=== PATIENT | male | born 1930 | race Caucasian/White ===

== ENCOUNTER 2016-10-01 10:28 | Inpatient (IN) | payer OTHER ==
[~2016-10-01] VITALS: Ht 157.5 cm; Wt 71.7 kg
[~2016-10-01 10:28] MED LIST: DOCU100C58 PO; LEVO50TA8 PO; LOSA50TA21 PO; SIMV40TA5 PO
--- NOTE | 2016-10-01 11:01 | NUR ---
AAOX3, AMBULATES TO ER BED 07, LIMPING NOTED C/O LEFT 4TH ADN 5TH TOE PAIN AND SWELLING, DISCOLORATION NOTED. SKIN IS WARM AND DRY. DENIES ANY TRAUMA. RESP EVEN AND UNLABORED. NAD NOTED. AWAITING MD FOR EVAL.
[2016-10-01] MEDS ORDERED: PIPERACILLIN /TAZOBACTAM 3.375 G in IV D5W 50 ML IV ONE (11:30)
[2016-10-01] MEDS ORDERED: ONDANSETRON HCL/PF 4 MG/2 ML VIAL IV ONE (11:30)
[2016-10-01] MEDS ORDERED: MORPHINE SULFATE INJ 2 MG/ML DISP.SYRIN IV ONE (11:30)
[2016-10-01] MEDS ORDERED: ONDANSETRON HCL/PF 4 MG/2 ML VIAL ONE (11:37)
[2016-10-01] MEDS ORDERED: MORPHINE SULFATE INJ 4 MG/ML DISP.SYRIN ONE (11:37)
[2016-10-01 11:42] LABS: BASOPHILS % (AUTO) 0.3 % (0.0-2.0); EOSINOPHILS % (AUTO) 0.3 % (0.0-6.0); HEMATOCRIT 43 % (39-51); HEMOGLOBIN 13.8 g/dL (13.5-17.5); LYMPHOCYTES # (AUTO) 1.8 /CMM (0.8-4.8); LYMPHOCYTES % (AUTO) 22.1 % (20.0-44.0); MEAN CORPUSCULAR HEMOGLOBIN 28 PG (26.0-33.0); MEAN CORPUSCULAR HGB CONC 32 g/dl (31.0-36.0); MEAN CORPUSCULAR VOLUME 88 fL (80-96); MONOCYTES # (AUTO) 0.6 /CMM (0.1-1.30); MONOCYTES % (AUTO) 6.9 % (2.0-12.0); NEUTROPHILS # (AUTO) 5.8 /CMM (1.8-8.9); NEUTROPHILS % (AUTO) 70.4 % (43.0-81.0); PLATELET COUNT (AUTO) 294 /CMM (150-450); RDW COEFFICIENT OF VARIATION 13.5 (11.5-15.0); RED BLOOD CELL COUNT(AUTO) 4.88 MIL/uL (4.5-6.0); WHITE BLOOD COUNT (AUTO) 8.2 K/uL (4.3-11.0)
[2016-10-01 11:52] LABS: CREATININE 0.8 mg/dL (0.6-1.3); POTASSIUM 4.1 mmol/L (3.5-5.1)
[2016-10-01 11:58] LABS: ALBUMIN 3.4 g/dL (3.4-5.0); BILIRUBIN,TOTAL 0.5 mg/dL (0.2-1.0); TOTAL PROTEIN, SERUM 7.7 g/dL (6.4-8.2)
--- NOTE | 2016-10-01 13:28 | NUR ---
CALLED FOR PANEL CONCRETE BUCKET UNLOADER DR SHARMA
--- NOTE | 2016-10-01 13:54 | NUR ---
CALLED NURSING INCLUSION PARAEDUCATOR FOR M/S BED
[2016-10-01] MEDS ORDERED: DIPH25CA83 PO (14:00)
[2016-10-01] MEDS ORDERED: NIFE30TA89 PO (14:00)
--- NOTE | 2016-10-01 14:08 | NUR ---
DAUGHTER AT BEDSIDE
--- NOTE | 2016-10-01 14:59 | NUR ---
REPORT GIVEN TO SANJU MIKE FOR CRESENCIO
--- NOTE | 2016-10-01 15:00 | NUR ---
MS RN OPENING NOTES RECEIVED PT FROM ER NURSE IN STABLE CONDITION. NO SOB OR SIGNS OF DISTRESS AT THIS TIME. NO PAIN EXPRESSED BY PATIENT. IV SITE INTACT AND PATENT. BED IN LOW LOCKED POSITION, SIDE RAILS UP X2, CALL LIGHT WITHIN PT. REACH. WILL WAIT FOR ORDERS AND CONTINUE ADMISSION PROCESS.
[2016-10-01 15:30] VITALS: BP 126/73
[2016-10-01] MEDS ORDERED: HYDROCODONE/APAP 5/325MG 1 EACH TABLET PO PRN (15:30)
[2016-10-01] MEDS ORDERED: MAG HYDROX/AL HYDROX/SIMETH 30 ML UDC PO PRN ×2 (15:30→15:45)
[2016-10-01] MEDS ORDERED: diphenhydrAMINE HCL 25 MG CAPSULE PO SCH (15:30)
[2016-10-01] MEDS ORDERED: ACETAMINOPHEN 325 MG TABLET PO PRN ×2 (15:30→15:45)
[2016-10-01] MEDS ORDERED: ONDANSETRON HCL/PF 4 MG/2 ML VIAL IVP PRN ×2 (15:30→15:45)
[2016-10-01] MEDS ORDERED: MAGNESIUM HYDROXIDE 30 ML UDC PO PRN ×2 (15:30→15:45)
[2016-10-01] MEDS ORDERED: ZOLPIDEM TARTRATE 5 MG TABLET PO PRN ×2 (15:30→15:45)
[2016-10-01] MEDS ORDERED: Z GUARD REMEDY 2 OZ OINT TP PRN ×2 (15:30→15:45)
[2016-10-01] MEDS ORDERED: CLINDAMYCIN IV RTU IN D5W 900 MG/50 ML PIGGYBACK IV SCH (17:00)
[2016-10-01] MEDS ORDERED: IV SET PRIMARY PUMP SET 1 EA INFUS.SET MC ONE (18:12)
[2016-10-01] MEDS ORDERED: IV NS 0.9% 250 ML IV ONE (18:12)
[2016-10-01] MEDS ORDERED: SECONDARY IV SET 1 EA INFUS.SET MC ONE (18:12)
[2016-10-01] MEDS: CLINDAMYCIN 900 MG in IV D5W 50 ML IV SCH (18:19)
[2016-10-01 19:00] VITALS: BP 96/53
--- NOTE | 2016-10-01 19:15 | NUR ---
MS RN CLOSING NOTES PT. IN STABLE CONDITION AWAKE IN BED. NO SOB OR SIGNS OF DISTRESS. NO COMPLAINTS OF PAIN AT THIS TIME. BED IN LOW LOCKED POSITION, SIDE RAILS UP X2, CALL LIGHT WITHIN PT REACH. ALL SAFETY MEASURE INITIATED AND ALL ORDERS CARRIED OUT THROUGHOUT SHIFT. WILL ENDORSE TO HOSIERY KNITTER NURSE FOR CRESENCIO.
--- NOTE | 2016-10-01 19:30 | NUR ---
MS NURSE OPENING NOTES RECEIVED REPORT FROM NIGHT NURSE. PATIENT WAS RESTING IN BED IN THE LOWEST POSITION, SIDE RAILS UP X2, CALL LIGHT WITHIN REACH, AND NO SIGNS OF SOB OR DISTRESS. WILL CONTINUE TO ASSESS, MONITOR, AND IMPLEMENT PLAN OF CARE.
--- NOTE | 2016-10-01 19:30 | NUR ---
RN NOTES RECEIVED PT. AWAKE ON BED, A/OX4, COMORAN SPEAKING DENIES ANY PAIN, NO SOB, CALL LIGHT WITHIN REACH, SIDERAILS UPX2 CONTINUE TO MONITOR
[2016-10-01] MEDS: SIMVASTATIN 40 MG TABLET PO SCH (21:46)
[2016-10-01] MEDS ORDERED: SIMVASTATIN 40 MG TABLET PO SCH (22:00)
[2016-10-01] MEDS ORDERED: diphenhydrAMINE HCL 25 MG CAPSULE PO PRN (22:00)
[2016-10-02 00:49] VITALS: BP 96/53
[2016-10-02] MEDS: CLINDAMYCIN 900 MG in IV D5W 50 ML IV SCH ×3 (01:04→16:06)
--- NOTE | 2016-10-02 06:47 | NUR ---
MS NURSE'S CLOSING NOTES PATIENT IS IN STABLE CONDITION. PT IS SLEEPING IN BED. NO SOB OR SIGNS OF DISTRESS. BED IS IN LOW LOCKED POSITION. SIDE RAILS UP X2, CALL LIGHT WITHIN REACH.
--- NOTE | 2016-10-02 07:20 | NUR ---
ms rn initial notes Received patient in bed, awake, head of bed elevated, no SOB or distress noted. on 02 @ 2lpm via NC and tolerated well. Alert and Oriented x 4, bhutanese speaking only. Ambulatory. heplock on the left AC #20 intact and patent. Kept patient clean and comfortable in bed, call light with in patient reach, will continue to monitor accordingly.
[2016-10-02] MEDS ORDERED: LEVOTHYROXINE SODIUM 50 MCG TABLET PO SCH (07:30)
[2016-10-02] MEDS: LEVOTHYROXINE SODIUM 50 MCG TABLET PO SCH (07:38)
[2016-10-02 08:00] VITALS: BP 154/82
[2016-10-02 08:15] LABS: BASOPHILS % (AUTO) 0.1 % (0.0-2.0); EOSINOPHILS # (AUTO) 0.1 /CMM (0.0-0.7); EOSINOPHILS % (AUTO) 2.1 % (0.0-6.0); HEMATOCRIT 41 % (39-51); HEMOGLOBIN 13.3 g/dL (13.5-17.5); LYMPHOCYTES # (AUTO) 2.3 /CMM (0.8-4.8); LYMPHOCYTES % (AUTO) 37.1 % (20.0-44.0); MEAN CORPUSCULAR HEMOGLOBIN 29 PG (26.0-33.0); MEAN CORPUSCULAR HGB CONC 33 g/dl (31.0-36.0); MEAN CORPUSCULAR VOLUME 89 fL (80-96); MONOCYTES # (AUTO) 0.8 /CMM (0.1-1.30); MONOCYTES % (AUTO) 12.7 % (2.0-12.0); PLATELET COUNT (AUTO) 259 /CMM (150-450); RDW COEFFICIENT OF VARIATION 14.5 (11.5-15.0); RED BLOOD CELL COUNT(AUTO) 4.57 MIL/uL (4.5-6.0); WHITE BLOOD COUNT (AUTO) 6.2 K/uL (4.3-11.0)
[2016-10-02 08:20] VITALS: BP 152/82
[2016-10-02] MEDS: NIFEdipine XL (30MG) 30 MG TAB PO SCH (08:47)
[2016-10-02] MEDS ORDERED: NIFEdipine XL (30MG) 30 MG TAB PO SCH (09:00)
[2016-10-02] MEDS: HYDROCODONE/APAP 5/325MG 1 EACH TABLET PO PRN ×2 (11:47→18:42)
--- NOTE | 2016-10-02 11:52 | NUR ---
WOUND CARE CONSULT: PATIENT SEEN AND SKIN ASSESSMENT DONE. PATIENT ALERT, ORIENTED, AMBULATORY, INDEPENDENT WITH BED MOBILITY, CONTINENT, VALERY 21. SEE TODAY'S SKIN ASSESSMENT IN PCS ALONG WITH RECOMMENDATIONS DISCUSSED WITH NURSING STAFF. IN AGREEMENT WITH PLAN OF CARE. Addendum: 10/02/16 at 1153 by JUSTICE BORJAS WNDNU Amended: Links added.
[2016-10-02] MEDS: NEOMY SULF/BACITRAC ZN/POLY 15 GM TUBE TP SCH (14:41)
--- NOTE | 2016-10-02 15:52 | NUR ---
ms rn notes Paged Dr. Anderson and spoke with him and informed regarding patient VTE score of 3 and ordered Lovenox 40mg SQ QD. All orders carried out and noted. Will continue to monitor accordingly.
[2016-10-02 16:00] VITALS: BP 147/79
[2016-10-02] MEDS: ENOXAPARIN SODIUM 40 MG/0.4 ML DISP.SYRIN SQ SCH (16:06)
[2016-10-02 16:09] LABS: FREE PSA < 0.06 ng/mL (0.00-45)
[2016-10-02 16:11] LABS: PROSTATE SPECIFIC ANTIGEN SCR < 0.13 ng/mL (0.00-4.00)
[2016-10-02 16:46] VITALS: BP 147/79
[2016-10-02] MEDS ORDERED: BENZONATATE 100 MG CAPSULE PO PRN (18:00)
--- NOTE | 2016-10-02 19:33 | NUR ---
ms rn closing notes All needs provided, attended, and anticipated. Kept patient clean and comfortable in bed, call light with in patient reach, will continue to monitor accordingly. Endorsed to next shift RN to continue care.
[2016-10-02 20:00] VITALS: BP 125/72
[2016-10-02] MEDS: SIMVASTATIN 40 MG TABLET PO SCH (21:07)
[2016-10-03] MEDS: CLINDAMYCIN 900 MG in IV D5W 50 ML IV SCH ×3 (00:21→16:25)
[2016-10-03] MEDS: HYDROCODONE/APAP 5/325MG 1 EACH TABLET PO PRN ×2 (00:21→08:47)
[2016-10-03] MEDS: LEVOTHYROXINE SODIUM 50 MCG TABLET PO SCH (06:20)
--- NOTE | 2016-10-03 06:46 | NUR ---
wound dressing provided last night, refused pain meds ,gives him upset stomach,continue with antibiotics,didn't sleep well last night due to agitated roommate.
--- NOTE | 2016-10-03 07:20 | NUR ---
ms rn initial notes Received patient in bed, awake, head of bed elevated, no SOB or distress noted. on room air and tolerated well. Ambulatory. Alert and oriented x 4, Barbadian speaking. IV intact and patent heplock only. Kept patient clean and comfortable in bed, call light with in patient reach, will continue to monitor accordingly.
[2016-10-03 08:00] VITALS: BP_SYST 136; BP_SYST 156; BP_DIAS 82
[2016-10-03] MEDS: NEOMY SULF/BACITRAC ZN/POLY 15 GM TUBE TP SCH (08:43)
[2016-10-03] MEDS: NIFEdipine XL (30MG) 30 MG TAB PO SCH (08:43)
[2016-10-03 16:00] VITALS: BP_SYST 154; BP_DIAS 82; BP_DIAS 89
[2016-10-03] MEDS: ENOXAPARIN SODIUM 40 MG/0.4 ML DISP.SYRIN SQ SCH (16:26)
--- NOTE | 2016-10-03 16:38 | NUR ---
ms rn notes Dr. Anderson on site and informed regarding patient wound culture result and sensitivity and ordered to discontinue previous IV ATB and change it to Levaquin 750mg IV Q24hrs. All orders carried out and noted. Will continue to monitor accordingly.
[2016-10-03] MEDS ORDERED: LEVOFLOXACIN 750 MG /D5W 150ML 750 MG in PREMIX 1 EA IV SCH (17:00)
--- NOTE | 2016-10-03 19:25 | NUR ---
MS RN NOTES RECEIVED ON BED AWAKE,ALERT X4,WATCHING TV PROGRAM.DENIES PAIN AT THE MOMENT.SALINE LOCK LAC INTACT AND PATENT LEFT FOOT DRESSING INTACT AND DRY.CALL LIGHT IN REACH,NEEDS ANTICIPATED.
--- NOTE | 2016-10-03 19:30 | NUR ---
MS RN NOTES ON BED SLEEPING WITH HOB ELEVATED.BREATHING REGULAR.O2 IN USED TO KEEP O2 SAT ABOVE 90%.LEFT DRESSING INTACT AND DRY.FALL PRECAUTION OBSERVED.WILL CONTINUE TO MONITOR STATUS.
[2016-10-03 20:00] VITALS: BP 124/71
[2016-10-03 20:39] VITALS: BP 124/71
[2016-10-03] MEDS: SIMVASTATIN 40 MG TABLET PO SCH (21:06)
--- NOTE | 2016-10-03 21:30 | NUR ---
MS RN NOTES DUE PO MEDS GIVEN.DRESSING DONE ON HIS LEFT FOOT.
--- NOTE | 2016-10-04 06:37 | NUR ---
MS RN NOTES AWAKE,ASSISTED WITH MORNING CARE BY AJ ASTORGA.ALL NEEDS ATTENDED.WILL ENDORSE TO DAY NURSE FOR CRESENCIO.
[2016-10-04 07:32] LABS: BASOPHILS % (AUTO) 0.2 % (0.0-2.0); EOSINOPHILS # (AUTO) 0.2 /CMM (0.0-0.7); EOSINOPHILS % (AUTO) 3.2 % (0.0-6.0); HEMATOCRIT 43 % (39-51); HEMOGLOBIN 14.4 g/dL (13.5-17.5); LYMPHOCYTES # (AUTO) 3.1 /CMM (0.8-4.8); LYMPHOCYTES % (AUTO) 48.3 % (20.0-44.0); MEAN CORPUSCULAR HEMOGLOBIN 29 PG (26.0-33.0); MEAN CORPUSCULAR HGB CONC 33 g/dl (31.0-36.0); MEAN CORPUSCULAR VOLUME 88 fL (80-96); MONOCYTES # (AUTO) 0.5 /CMM (0.1-1.30); MONOCYTES % (AUTO) 8.6 % (2.0-12.0); NEUTROPHILS # (AUTO) 2.5 /CMM (1.8-8.9); NEUTROPHILS % (AUTO) 39.7 % (43.0-81.0); PLATELET COUNT (AUTO) 345 /CMM (150-450); RDW COEFFICIENT OF VARIATION 14.3 (11.5-15.0); RED BLOOD CELL COUNT(AUTO) 4.93 MIL/uL (4.5-6.0); WHITE BLOOD COUNT (AUTO) 6.4 K/uL (4.3-11.0)
--- NOTE | 2016-10-04 07:35 | NUR ---
AM RN NOTE Received patient awake, A/O X3 verbally responsive. No SOB noted resp even and non-labored. IV site intact and patent. Bed in low locked position. Will continue to monitor.
[2016-10-04 07:54] LABS: CALCIUM, SERUM 9.2 mg/dL (8.5-10.1)
[2016-10-04 08:00] VITALS: BP 128/74
[2016-10-04] MEDS: LEVOFLOXACIN 750 MG /D5W 150ML 750 MG in PREMIX 1 EA IV SCH (08:53)
[2016-10-04] MEDS: NIFEdipine XL (30MG) 30 MG TAB PO SCH (08:53)
[2016-10-04] MEDS: LEVOTHYROXINE SODIUM 50 MCG TABLET PO SCH (08:53)
[2016-10-04] MEDS: NEOMY SULF/BACITRAC ZN/POLY 15 GM TUBE TP SCH (08:54)
[2016-10-04] MEDS ORDERED: LEVOFLOXACIN 750 MG /D5W 150ML 750 MG in PREMIX 1 EA IV SCH (09:00)
--- NOTE | 2016-10-04 11:10 | NUR ---
AM RN NOTE Patient awake, IV site noted with leakage, re-inserted new site on right hand #22 x1 attempt.
[2016-10-04] MEDS: ENOXAPARIN SODIUM 40 MG/0.4 ML DISP.SYRIN SQ SCH (15:50)
[2016-10-04 16:00] VITALS: BP 133/76
--- NOTE | 2016-10-04 18:35 | NUR ---
AM RN NOTE Patient lying in his bed, no acute distress noted. IV site intact and patent. Will continue to monitor. Will endorse to next shift for CRESENCIO.
[2016-10-04 20:00] VITALS: BP 158/86
--- NOTE | 2016-10-04 20:00 | NUR ---
FINANCIAL PLANNING ASSISTANT INITIAL NOTES SEEN PT IN BED AWAKE AND ALERT WATCHING TV , DENIES ANY PAIN OR ANY DISCOMFORT. DENIED ANY PAIN OR ANY DISCOMFORT. AMBULATE WITHOUT ANY PAIN OR DISCOMFORT. ENCOURAGE HIM TO USED THE CALL LIGHT IF HE NEEDS SOME HELP OR NEEDS THE NURSE. WILL CONTINUE TO MONITOR.PLACE CALL LIGHT AT REACH.
[2016-10-04] MEDS: SIMVASTATIN 40 MG TABLET PO SCH (23:35)
--- NOTE | 2016-10-05 | NUR ---
PEDIATRIC ONCOLOGIST/NOTES PT SLEEPING COMFORTABLY IN BED WITHOUT ANY ACUTE DISTRESS NOTED. PT AWARE HES NPO FOR CT IN AM . WILL CONTINUE TO MONITOR.
--- NOTE | 2016-10-05 07:15 | NUR ---
RELATIONSHIP MGR CLOSING NOTES PT AWAKE AND ALERT DENIES ANY PAIN OR ANY DISCOMFORT , AWARE OF HIS PROCEDURE YOJANA , CONSENT SIGNED. PT STABLE BRIDGETTE THE NIGHT AND SLEPT WELL. DUE MED GIVEN AND ALL NEEDS MET. ENDORSE TO AM NURSE HUBER FOR CONTINUITY OF CARE.
--- NOTE | 2016-10-05 07:40 | NUR ---
AM RN NOTE Received patient sleeping comfortably in his bed, arouses upon touch. No SOB noted resp even and non-labored. Bed in low locked position. Will continue to monitor. Call light with in reach.
[2016-10-05 08:00] VITALS: BP 160/90
--- NOTE | 2016-10-05 08:30 | NUR ---
AM RN NOTE Received call tech that pt can eat breakfast, procedure (CTA abdominal aorta) will be done late afternoon.
[2016-10-05] MEDS: LEVOTHYROXINE SODIUM 50 MCG TABLET PO SCH (09:18)
[2016-10-05] MEDS: NEOMY SULF/BACITRAC ZN/POLY 15 GM TUBE TP SCH (09:18)
[2016-10-05] MEDS: NIFEdipine XL (30MG) 30 MG TAB PO SCH (09:18)
--- NOTE | 2016-10-05 13:00 | NUR ---
AM RN NOTE New IV site #22 inserted on RAC for CTA procedure per air and hydronic balancing technician.
[2016-10-05] MEDS ORDERED: IV NS 0.9% 250 ML IV ONE (14:12)
[2016-10-05] MEDS ORDERED: IOHEXOL-350 100 ML VIAL IV ONE (14:12)
[2016-10-05] MEDS ORDERED: CT SWABBABLE VALVE TRANS SET 1 EA INFUS.SET MC ONE (14:12)
[2016-10-05 16:00] VITALS: BP 137/88
[2016-10-05 16:30] VITALS: BP 135/80
[2016-10-05] MEDS: ENOXAPARIN SODIUM 40 MG/0.4 ML DISP.SYRIN SQ SCH (17:05)
--- NOTE | 2016-10-05 18:39 | NUR ---
AM RN NOTE Patient lying in his bed, watching tv. No acute distress noted. Will endorse care to next shift. IV sites intact.
--- NOTE | 2016-10-05 19:48 | NUR ---
MS/RN OPENING NOTES PATIENT AWAKE. SITTING IN BED. ALERT, ORIENTED X4. ABLE TO MAKE GOOD EYE CONTACT AND SPEAK OWN LANGUAGE. COOPERATIVE TO CARE. ATTEND TO NEEDS AT ALL TIMES. WILL CONTINUE WITH CRESENCIO. AND ATTEND TO NEEDS.
[2016-10-05 20:51] VITALS: BP 114/73
[2016-10-05] MEDS: SIMVASTATIN 40 MG TABLET PO SCH (21:44)
--- NOTE | 2016-10-06 06:17 | NUR ---
MS/RN CLOSING NOTES PATIENT IN BED. ASLEEP BUT ABLE TO AROUSE. CAN VERBALIZE NEEDS WITH BATHROOM PRIVELEGE WITH ASSISTANCE. NO S/S OF SOB OR DISTRESS WILL CONTINUE TO MONITOR AND ENDORSE TO AM RN FOR CRESENCIO. CALL LIGHTS WITHIN REACH.BED IN LOCK POSITION.
--- NOTE | 2016-10-06 07:32 | NUR ---
PATIENT AWAKE. ALERT, ORIENTED X4. RESPONSIVE TO STAFFS AND SPEAK OWN LANGUAGE. COOPERATIVE TO CARE. ATTEND TO NEEDS AT ALL TIMES. WILL CONTINUE TO MONITOR.
[2016-10-06 08:00] VITALS: BP 155/94
[2016-10-06] MEDS: LEVOTHYROXINE SODIUM 50 MCG TABLET PO SCH (08:51)
[2016-10-06] MEDS: NIFEdipine XL (30MG) 30 MG TAB PO SCH (08:51)
[2016-10-06] MEDS ORDERED: IV SET PRIMARY PUMP SET 1 EA INFUS.SET MC ONE (08:52)
[2016-10-06] MEDS: LEVOFLOXACIN 750 MG /D5W 150ML 750 MG in PREMIX 1 EA IV SCH (08:52)
[2016-10-06] MEDS: NEOMY SULF/BACITRAC ZN/POLY 15 GM TUBE TP SCH (10:46)
[2016-10-06] MEDS: ENOXAPARIN SODIUM 40 MG/0.4 ML DISP.SYRIN SQ SCH (15:42)
[2016-10-06 16:00] VITALS: BP 139/89
--- NOTE | 2016-10-06 19:28 | NUR ---
MS/RN OPENING NOTES RECEIVED ENDORSEMENT FROM AM RN REGARDING CRESENCIO. PATIENT IS A UGAND[place] SPEAKING BUT COOPERATIVE TO CARE AND CAN FOLLOW SIMPLE COMMANDS. ABLE TO VERBALIZE NEEDS. CALL LIGHTS WITHIN REACH. ASSIST TO CARE. WILL CONTINUE TO MONITOR.
[2016-10-06 20:00] VITALS: BP 121/75
[2016-10-06] MEDS: SIMVASTATIN 40 MG TABLET PO SCH (20:52)
--- NOTE | 2016-10-07 06:40 | NUR ---
MS/RN CLOSING NOTES PATIENT AWAKE, ALERT ORIENTED. AMBULATED TO BATHROOM SAFELY WITH SUPERVISION. VERBALIZE NEED IN SIIMPLE TURKMEN. NO S/S OF SOB OR DISTRESS. CALL LIGHTS WITHIN REACH WILL ENDORSE TO AM RN FOR CRESENCIO.
[2016-10-07 08:00] VITALS: BP 141/69
--- NOTE | 2016-10-07 08:00 | NUR ---
RECEIVED PT. ALERT AND ORIENTED X 4,COOPERATIVE AND MED COMPLIANT.DR. GREEN IN AND CHECKED WD ON FOOT,WD. CARE DONE AND TOLERATED WELL.
[2016-10-07] MEDS: NEOMY SULF/BACITRAC ZN/POLY 15 GM TUBE TP SCH (08:45)
[2016-10-07] MEDS: LEVOTHYROXINE SODIUM 50 MCG TABLET PO SCH (08:46)
[2016-10-07] MEDS: NIFEdipine XL (30MG) 30 MG TAB PO SCH (08:46)
--- NOTE | 2016-10-07 10:00 | NUR ---
DR. SHARMA IN TO SEE PT.
[2016-10-07] MEDS: CADEXOMER IODINE 40 GM TUBE TP SCH (10:26)
[2016-10-07] MEDS ORDERED: IV NS 0.9% 250 ML IV ONE (12:41)
[2016-10-07 16:00] VITALS: BP 150/82
[2016-10-07] MEDS: ENOXAPARIN SODIUM 40 MG/0.4 ML DISP.SYRIN SQ SCH (17:31)
--- NOTE | 2016-10-07 18:00 | NUR ---
NO CHANGE IN STATUS.
--- NOTE | 2016-10-07 19:35 | NUR ---
RN OPEN NOTES RECEIVED PATIENT AWAKE LAYING IN BED. A/OX4. NO SIGNS OF DISTRESS OR DISCOMFORT. BREATHING EVEN AND UNLABORED. IV ACCESS IN RIGHT HAND, PATENT AND INTACT. NO SIGNS OF REDNESS OR INFILTRATION. DRESSING ON RIGHT FOOT C/D/I. BED IN LOW LOCKED POSITION WITH SIDE RAILS X2. CALL LIGHT WITHIN REACH. WILL CONTINUE TO MONITOR.
[2016-10-07 20:00] VITALS: BP 128/80
[2016-10-07] MEDS: SIMVASTATIN 40 MG TABLET PO SCH (22:16)
--- NOTE | 2016-10-08 07:10 | NUR ---
MS RN NOTES RECEIVED PATIENT IN BED, AWAKE, A/O X4. APPEARS COMFORTABLE IN BED, BREATHING EVEN AND NONLABORED, NO SOB NOTED. IV IN RIGHT HAND G22 PATENT AND INTACT, FLUSHES WELL. CALL LIGHT WITHIN REACH. WILL CONT TO MONITOR.
--- NOTE | 2016-10-08 07:20 | NUR ---
RN CLOSING NOTES PATIENT AWAKE LAYING IN BED. A/OX3. NO SIGNS OF DISTRESS OR DISCOMFORT. BREATHING EVEN AND UNLABORED. IV ACCESS IN RIGHT HAND, PATENT AND INTACT. NO SIGNS OF REDNESS OR INFILTRATION. DRESSING ON RIGHT FOOT C/D/I. PATIENT KEPT CLEAN DRY AND COMFORTABLE. NO SIGNIFICANT CHANGES THROUGH THE NIGHT. ALL NEEDS MET. REPOSITIONED Q2H. BED IN LOW LOCKED POSITION WITH SIDE RAILS X2. CALL LIGHT WITHIN REACH. ENDORSED TO AM SHIFT FOR CRESENCIO.
[2016-10-08 08:00] VITALS: BP_SYST 131; BP_SYST 139; BP_DIAS 96
[2016-10-08] MEDS: LEVOTHYROXINE SODIUM 50 MCG TABLET PO SCH (08:59)
[2016-10-08] MEDS: NIFEdipine XL (30MG) 30 MG TAB PO SCH (09:00)
[2016-10-08] MEDS: NEOMY SULF/BACITRAC ZN/POLY 15 GM TUBE TP SCH (09:00)
[2016-10-08] MEDS: LEVOFLOXACIN 750 MG /D5W 150ML 750 MG in PREMIX 1 EA IV SCH (09:01)
[2016-10-08] MEDS: CADEXOMER IODINE 40 GM TUBE TP SCH (09:32)
--- NOTE | 2016-10-08 09:41 | NUR ---
NEOSPORIN OINT. NON ADMINISTERED. CURRENT TREATMENT IODOSORB CREAM TO WOUND.
[2016-10-08 16:00] VITALS: BP 120/70
[2016-10-08] MEDS: ENOXAPARIN SODIUM 40 MG/0.4 ML DISP.SYRIN SQ SCH (16:39)
--- NOTE | 2016-10-08 18:54 | NUR ---
MS RN CLOSING NOTES PATIENT IN BED, NOT IN DISTRESS. ON ANTIBIOTIC WITH NO ADVERSE REACTION, AFEBRILE. DRESSING CHANGED IN LEFT FOOT 4TH AND 5TH TOE. NO C/O PAIN OR ANY DISCOMFORT. CALL LIGHT WITHIN REACH. LAB IN AM, POSSIBLE DC. WILL ENDORSE TO CONTRACTOR FIELD HAULING RN FOR CONTINUITY OF CARE.
--- NOTE | 2016-10-08 19:10 | NUR ---
RN OPEN NOTES RECEIVED PATIENT AWAKE LAYING IN BED. A/OX4. NO SIGNS OF DISTRESS OR DISCOMFORT. BREATHING EVEN AND UNLABORED. IV ACCESS IN RIGHT HAND, PATENT AND INTACT. NO SIGNS OF REDNESS OR INFILTRATION. DRESSING ON LEFT FOOT C/D/I. BED IN LOW LOCKED POSITION WITH SIDE RAILS X2. CALL LIGHT WITHIN REACH. WILL CONTINUE TO MONITOR.
[2016-10-08 20:00] VITALS: BP 133/82
[2016-10-08] MEDS: SIMVASTATIN 40 MG TABLET PO SCH (22:00)
--- NOTE | 2016-10-08 22:00 | NUR ---
RN NOTES PERFORMED ORDERED WOUND TREATMENT. PATIENT TOLERATED WELL. WILL CONTINUE TO MONITOR.
--- NOTE | 2016-10-09 07:00 | NUR ---
MS RN NOTES RECEIVED PATIENT IN BED, A/O X4. LEFT FOOT DRESSING IN PLACE, NO C/O PAIN AT THIS TIME. NO SOB NOTED. CALL LIGHT WITHIN REACH. WILL CONT TO MONITOR.
--- NOTE | 2016-10-09 07:09 | NUR ---
RN CLOSING NOTES PATIENT AWAKE LAYING IN BED. A/OX4. NO SIGNS OF DISTRESS OR DISCOMFORT. BREATHING EVEN AND UNLABORED. IV ACCESS IN RIGHT HAND, PATENT AND INTACT. NO SIGNS OF REDNESS OR INFILTRATION. DRESSING ON LEFT FOOT C/D/I. NO SIGNIFICANT CHANGES THROUGH THE NIGHT. ALL NEEDS MET BED IN LOW LOCKED POSITION WITH SIDE RAILS X2. CALL LIGHT WITHIN REACH. WILL ENDORSE TO AM SHIFT FOR CRESENCIO.
[2016-10-09 07:45] LABS: BASOPHILS % (AUTO) 0.3 % (0.0-2.0); EOSINOPHILS # (AUTO) 0.1 /CMM (0.0-0.7); EOSINOPHILS % (AUTO) 1.3 % (0.0-6.0); HEMATOCRIT 41 % (39-51); HEMOGLOBIN 13.9 g/dL (13.5-17.5); LYMPHOCYTES # (AUTO) 3.2 /CMM (0.8-4.8); LYMPHOCYTES % (AUTO) 44.9 % (20.0-44.0); MEAN CORPUSCULAR HEMOGLOBIN 29 PG (26.0-33.0); MEAN CORPUSCULAR HGB CONC 34 g/dl (31.0-36.0); MEAN CORPUSCULAR VOLUME 87 fL (80-96); MONOCYTES # (AUTO) 0.6 /CMM (0.1-1.30); MONOCYTES % (AUTO) 8.7 % (2.0-12.0); NEUTROPHILS # (AUTO) 3.2 /CMM (1.8-8.9); NEUTROPHILS % (AUTO) 44.8 % (43.0-81.0); PLATELET COUNT (AUTO) 297 /CMM (150-450); RDW COEFFICIENT OF VARIATION 14.2 (11.5-15.0); RED BLOOD CELL COUNT(AUTO) 4.74 MIL/uL (4.5-6.0); WHITE BLOOD COUNT (AUTO) 7.1 K/uL (4.3-11.0)
[2016-10-09 08:00] VITALS: BP 141/75
[2016-10-09 08:07] LABS: CALCIUM, SERUM 8.9 mg/dL (8.5-10.1); CREATININE 0.9 mg/dL (0.6-1.3); POTASSIUM 4.7 mmol/L (3.5-5.1)
[2016-10-09] MEDS: NEOMY SULF/BACITRAC ZN/POLY 15 GM TUBE TP SCH (09:00)
[2016-10-09 09:17] VITALS: BP 141/75
[2016-10-09] MEDS: LEVOTHYROXINE SODIUM 50 MCG TABLET PO SCH (09:17)
[2016-10-09] MEDS: CADEXOMER IODINE 40 GM TUBE TP SCH (09:17)
[2016-10-09] MEDS: NIFEdipine XL (30MG) 30 MG TAB PO SCH (09:17)
--- NOTE | 2016-10-09 09:36 | NUR ---
NEOSPORIN OINT. NON ADMINISTERED. CURRENT TREATMENT IODOSORB CREAM TO WOUND.
[2016-10-09] MEDS ORDERED: LEVO500T15 PO (10:10)
--- NOTE | 2016-10-09 10:32 | NUR ---
PATIENT IS SEEN BY DR. SHARMA TODAY. PATIENT TO BE DISCHARGED HOME WITH HOME HEALTH TO FOLLOW.
--- NOTE | 2016-10-09 12:21 | NUR ---
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
--- NOTE | 2016-10-09 14:20 | NUR ---
MS RN DISCHARGED PATIENT HAS BEEN CLEARED FOR DISCHARGE HOME BY . PATIENT IS AMBULATORY, V/S REMAINS STABLE. DRESSING CHANGED IN LEFT FOOT 4TH AND 5TH TOE WOUND TODAY, TOLERATED WELL, NO C/O PAIN OR ANY DISCOMFORT. DISCHARGE INSTRUCTION GIVEN TO THE PATIENT AND DAUGHTER-JERILYN, VERBALIZED UNDERSTANDING. BELONGINGS CHECKED AND SEND WITH THE PATIENT UPON DC. PRESCRIPTION GIVEN TO THE PATIENT. PATIENT LEFT HOSP IN STABLE CONDITION VIA PRIVATE CAR ACCOMPANIED BY FRIEND-TANIA.
== END 2016-10-09 14:23 | disposition home health service (06) | DRG 383 ==
LOC: ER 10:29 → MED 15:33
PROVIDERS: ADMIT Family Medicine; ATTEND Family Medicine
DX: L03.116 Cellulitis of left lower limb (principal); L97.529 Non-pressure chronic ulcer of other part of left foot with unspecified severity; B96.5 Pseudomonas (aeruginosa) (mallei) (pseudomallei) as the cause of diseases classified elsewhere; I10 Essential (primary) hypertension; B95.2 Enterococcus as the cause of diseases classified elsewhere; I73.9 Peripheral vascular disease, unspecified; E03.9 Hypothyroidism, unspecified; E78.5 Hyperlipidemia, unspecified; Z87.891 Personal history of nicotine dependence; R91.1 Solitary pulmonary nodule; Z85.46 Personal history of malignant neoplasm of prostate; Z85.51 Personal history of malignant neoplasm of bladder; R73.9 Hyperglycemia, unspecified
CPT/HCPCS: 36415; 73630-TC; 80048-TC; 80053-TC; 84153-TC; 84154-TC; 85025-TC; 87040-TC; 87070-TC; 87081-TC; 87186-TC; 93925-TC; 94799-TC; A4216; A4606; A6402; A6403; J1650; J1956; J2270; J2405; J2543; J3490; J7050; J7060; Q9967; Z7610

== ENCOUNTER 2017-08-31 17:54 | Emergency (ER) | payer OTHER ==
[~2017-08-31] VITALS: Ht 165.1 cm; Wt 72.6 kg
[~2017-08-31 17:54] MED LIST changes: +DIPH25CA83 PO; -DOCU100C58 PO; +LEVO500T75 PO; -LOSA50TA21 PO; +NIFE30TA89 PO
--- NOTE | 2017-08-31 18:15 | NUR ---
Presents to ER C/O pain to r elbow and R arm, R hip, and R knee s/p trip and fall. Denies LOC. Patient is a/ox 4. Breathing even and unlabored. No sob. Vitals stable, nad. Safety and comfort measures in place. Awaiting md orders.
[2017-08-31] MEDS ORDERED: HYDROCODONE/APAP 5/325MG 1 EACH TABLET ONE (18:40)
--- NOTE | 2017-08-31 18:43 | NUR ---
PATIENT MEDICATED PER MD ORDERS. FIREWALL ADMINISTRATOR AT BEDSIDE FOR BLOOD DRAW.
[2017-08-31 18:53] LABS: BASOPHILS # (AUTO) 0.1 /CMM (0.0-0.2); EOSINOPHILS % (AUTO) 0.3 % (0.0-6.0); HEMATOCRIT 41 % (39-51); HEMOGLOBIN 13.7 g/dL (13.5-17.5); LYMPHOCYTES # (AUTO) 2.1 /CMM (0.8-4.8); LYMPHOCYTES % (AUTO) 25.7 % (20.0-44.0); MEAN CORPUSCULAR HEMOGLOBIN 30 PG (26.0-33.0); MEAN CORPUSCULAR HGB CONC 34 g/dl (31.0-36.0); MEAN CORPUSCULAR VOLUME 89 fL (80-96); MONOCYTES # (AUTO) 0.7 /CMM (0.1-1.30); MONOCYTES % (AUTO) 8.8 % (2.0-12.0); NEUTROPHILS # (AUTO) 5.4 /CMM (1.8-8.9); NEUTROPHILS % (AUTO) 64.2 % (43.0-81.0); PLATELET COUNT (AUTO) 232 /CMM (150-450); RDW COEFFICIENT OF VARIATION 13.7 (11.5-15.0); RED BLOOD CELL COUNT(AUTO) 4.56 MIL/uL (4.5-6.0); WHITE BLOOD COUNT (AUTO) 8.3 K/uL (4.3-11.0)
--- NOTE | 2017-08-31 18:59 | NUR ---
FAMILY LAW PARALEGAL AT BEDSIDE.
[2017-08-31] MEDS ORDERED: HYDROCODONE/APAP 5/325MG 1 EACH TABLET PO ONE (19:00)
[2017-08-31 19:02] LABS: CALCIUM, SERUM 9.2 mg/dL (8.5-10.1); CARBON DIOXIDE 26 mmol/L (21-32); CHLORIDE 102 mmol/L (98-107); CREATININE 0.9 mg/dL (0.6-1.3); GLUCOSE 115 mg/dL (74-106); POTASSIUM 4.4 mmol/L (3.5-5.1); SODIUM SERUM 135 mmol/L (136-145); UREA NITROGEN, BLOOD 30 mg/dL (7-18)
--- NOTE | 2017-08-31 19:36 | NUR ---
REPORT GIVEN TO TERESA MIKE FOR CRESENCIO.
--- NOTE | 2017-08-31 19:54 | NUR ---
ASSUMED CARE OF PT.
--- NOTE | 2017-08-31 20:37 | NUR ---
DR. NIELSEN IS AT THE BEDSIDE.
--- NOTE | 2017-08-31 20:40 | NUR ---
PT REC'D GRIPPER SOCKS AND EMT IS HAVING PT AMBULATE.
--- NOTE | 2017-08-31 20:44 | NUR ---
PT IS AMBULATORY WITH A WALKER. PT IS C/O RUE AND RLE PAIN WITH WALKING.
[2017-08-31 21:04] VITALS: BP 123/71
--- NOTE | 2017-08-31 21:05 | NUR ---
Patient discharged to home in stable condition. Written and verbal after care instructions given. Patient verbalizes understanding of instruction. PT'S DAUGHTER IS DRIVING PT HOME. PT AMBULATED OUT WITH HIS WALKER.
== END 2017-08-31 21:06 | disposition home or self-care (01) ==
LOC: ER 17:55
DX: S50.01XA Contusion of right elbow, initial encounter (principal); S86.911A Strain of unspecified muscle(s) and tendon(s) at lower leg level, right leg, initial encounter; E03.9 Hypothyroidism, unspecified; I10 Essential (primary) hypertension; Z88.6 Allergy status to analgesic agent; Z85.51 Personal history of malignant neoplasm of bladder; W01.0XXA Fall on same level from slipping, tripping and stumbling without subsequent striking against object, initial encounter; Y93.02 Activity, running; Y92.89 Other specified places as the place of occurrence of the external cause; Y99.8 Other external cause status
CPT/HCPCS: 36415; 71045; 72170; 73060; 73551; 73564; 80048; 83880; 85025; 99285; A4606; Z7610; 73552

== ENCOUNTER 2019-02-04 20:38 | Emergency (ER) | payer MEDICARE, OTHER ==
[~2019-02-04] VITALS: Ht 165.1 cm; Wt 72.6 kg
--- NOTE | 2019-02-04 21:11 | NUR ---
Note undone in EDM - 02/04/19 at 2118 by MARIA DEL ROSARIO BIBFROM FROM FAMILY. TO ER BED 4. AAOX4, NAD NOTED, BREATHING EVEN AND UNLABORED. AMBULATORY WITH WALKER. C/O R LOWER LEG SWELLING X 1 WEEK. PT REPORTS PAIN OVER THE R LATERAL ANKLE 02/01 SHARP SHOOTING INTERMITENT. NOTED REDNESS AND EDEMA +3. L LEG IS COOLER THE R LEG. PT DENIES TRAUMA. AWAITING MD FOR EDDIE.
--- NOTE | 2019-02-04 21:11 | NUR ---
BIBFROM FROM FAMILY. TO ER BED 4. AAOX4, NAD NOTED, BREATHING EVEN AND UNLABORED. AMBULATORY WITH WALKER. C/O R LOWER LEG SWELLING X 1 WEEK. PT REPORTS PAIN OVER THE R LATERAL ANKLE 8/10 SHARP SHOOTING INTERMITENT. NOTED REDNESS AND EDEMA +3. R LEG IS COOLER THE L LEG. PT DENIES TRAUMA. AWAITING MD FOR EVAL.
--- NOTE | 2019-02-04 21:59 | NUR ---
US AT BEDSIDE
--- NOTE | 2019-02-05 | NUR ---
Patient discharged to home in stable condition. Written and verbal after care instructions given. Patient verbalizes understanding of instruction. Pt ambulatory with a steady gait
[2019-02-05 00:35] VITALS: BP 121/85
== END 2019-02-05 00:03 | disposition home or self-care (01) ==
LOC: ER 20:40
DX: I87.2 Venous insufficiency (chronic) (peripheral) (principal); I10 Essential (primary) hypertension; E03.9 Hypothyroidism, unspecified; Z88.6 Allergy status to analgesic agent; Z85.51 Personal history of malignant neoplasm of bladder; Z79.899 Other long term (current) drug therapy
CPT/HCPCS: 73610-TC; 73630-TC; 93971-TC